=== PATIENT | female | born 1945 | race Caucasian/White ===

== ENCOUNTER 2021-02-02 16:50 | Inpatient (IN) | payer OTHER ==
[~2021-02-02] VITALS: Ht 165.1 cm; Wt 62.9 kg
--- NOTE | 2021-02-02 17:49 | NUR ---
REFERRED FROM URGENT CARE, STOMACH PAIN, RECTAL BLEEDING, TARRY STOOL. PT IN BED IN GOWN WITH [employer]ILY [employer], SPO2, BP Q 30 MIN, SIDE RIALS UP X2, CALL LIGHT IN REACH. FAMILY AT BEDSIDE. NAD
[2021-02-02] MEDS ORDERED: PANTOPRAZOLE 80 MG in SODIUM CHLORIDE 0.9% 50 ML IVPB ONE (18:30)
[2021-02-02] MEDS ORDERED: SODIUM CHLORIDE FLUSH 10ML SYR IVF ONE (18:30)
[2021-02-02] MEDS ORDERED: SODIUM CHLORIDE 0.9% 1,000ML IVBOLUS ONE (18:30)
[2021-02-02] MEDS ORDERED: LISI5TAB7 PO (18:31)
[2021-02-02 18:40] LABS: BASOPHILS % (AUTO) 1 % (0-1); EOSINOPHILS % (AUTO) 1 % (1-7); LYMPHOCYTES % (AUTO) 40 % (22-44); MEAN CORPUSCULAR HEMOGLOBIN 30.1 pg (27.0-34.8); MEAN CORPUSCULAR HGB CONC 32.9 g/dL (32.4-35.8); MEAN PLATELET VOLUME 10.4 fL (7.4-10.4); MONOCYTES % (AUTO) 7 % (2-9); NEUTROPHILS % (AUTO) 51 % (42-75); PLATELET COUNT 153 x10^3/uL (130-400); RED BLOOD COUNT 4.96 x10^6/uL (3.82-5.3); RED CELL DISTRIBUTION WIDTH 14.7 % (9.6-15.2)
[2021-02-02 18:42] LABS: MD NO
--- NOTE | 2021-02-02 18:46 | NUR ---
GAVE REPORT TO MICHELLE ARIAS
[2021-02-02 18:48] LABS: ALANINE AMINOTRANSFERASE 15 U/L (12-78); ALBUMIN 2.9 g/dL (3.4-5.0); ANION GAP 6 mmol/L (5-15); CALCIUM 8.9 mg/dL (8.5-10.1); CHLORIDE 107 mmol/L (98-107); CREATININE 0.95 mg/dL (0.55-1.02)
[2021-02-02 18:50] LABS: ALKALINE PHOSPHATASE 98 U/L (45-117); BILIRUBIN,TOTAL 0.6 mg/dL (0.2-1.0); TOTAL PROTEIN 6.4 g/dL (6.4-8.2)
--- NOTE | 2021-02-02 18:55 | NUR ---
REPORT FROM TRINY ARIAS. FLUIDS STARTED. PT RESTING IN NAD. FAMILY AT BEDSIDE. CALL LIGHT IN REACH
--- NOTE | 2021-02-02 20:04 | NUR ---
PROTONIX DONE. VSS. FLUIDS ALMOST DONE INFUSING. PT HAS NO NEEDS AT THIS TIME. CALL LIGHT IN REACH
[2021-02-02 21:12] LABS: INTERNATIONAL NORMALIZED RATIO 0.99 (0.93-1.1); PROTHROMBIN TIME 10.6 Seconds (9.6-11.5)
[2021-02-02] MEDS ORDERED: POTASSIUM CHLORIDE 20 MEQ TAB.ER.PRT PO ONE (21:30)
[2021-02-02] MEDS ORDERED: BISACODYL 10 MG SUPP PR PRN (21:30)
[2021-02-02] MEDS ORDERED: ONDANSETRON 2MG/ML, 2ML IVPush PRN (21:30)
[2021-02-02] MEDS ORDERED: PANTOPRAZOLE 80 MG in SODIUM CHLORIDE 0.9% 100 ML IV SCH (21:30)
[2021-02-02] MEDS ORDERED: hydrALAzine 20 MG/ML, 1ML IVPush PRN (21:30)
[2021-02-02 22:51] VITALS: BP 179/81
[2021-02-03] VITALS (8 sets, daily range): BP systolic 146–214; BP diastolic 69–102
[2021-02-03] MEDS ORDERED: hydrALAzine 20 MG/ML, 1ML IV ONE (00:30)
[2021-02-03] MEDS: ACETAMINOPHEN 325 MG TABLET PO PRN ×2 (01:25→20:51)
[2021-02-03] MEDS ORDERED: LORazepam 2 MG/ML, 1ML IVPush ONE ×2 (05:30→21:00)
[2021-02-03 05:33] LABS: ANION GAP 6 mmol/L (5-15); CALCIUM 8.7 mg/dL (8.5-10.1); CHLORIDE 113 mmol/L (98-107); CREATININE 0.85 mg/dL (0.55-1.02)
[2021-02-03 05:46] LABS: BASOPHILS % (AUTO) 0 % (0-1); EOSINOPHILS % (AUTO) 2 % (1-7); LYMPHOCYTES % (AUTO) 37 % (22-44); MD NO; MEAN CORPUSCULAR HEMOGLOBIN 30.3 pg (27.0-34.8); MEAN CORPUSCULAR HGB CONC 33.6 g/dL (32.4-35.8); MEAN PLATELET VOLUME 10.2 fL (7.4-10.4); MONOCYTES % (AUTO) 7 % (2-9); NEUTROPHILS % (AUTO) 54 % (42-75); PLATELET COUNT 134 x10^3/uL (130-400); RED BLOOD COUNT 4.63 x10^6/uL (3.82-5.3); RED CELL DISTRIBUTION WIDTH 14.7 % (9.6-15.2)
[2021-02-03] MEDS ORDERED: POTASSIUM CHLORIDE 40 MEQ in SODIUM CHLORIDE 0.9% 500 ML IV ONE (07:00)
[2021-02-03] MEDS ORDERED: BISACODYL 5 MG EC TABLET PO ONE ×2 (08:00→11:55)
[2021-02-03] MEDS: MOVIPREP POWDER 1 PREP KIT PO SCH ×2 (10:01→21:03)
[2021-02-03] MEDS: hydrALAzine 20 MG/ML, 1ML IVPush PRN ×2 (12:16→19:43)
[2021-02-03] MEDS ORDERED: LORazepam 0.5MG TABLET PO PRN (16:00)
[2021-02-03] MEDS: LACTATED RINGERS 1,000 ML IV SCH (16:15)
[2021-02-03] MEDS: LISINOPRIL 10 MG TABLET PO SCH (19:36)
[2021-02-03] MEDS ORDERED: LORazepam 2 MG/ML, 1ML IVPush PRN (21:00)
[2021-02-04 00:13] VITALS: BP 176/77
[2021-02-04] MEDS: hydrALAzine 20 MG/ML, 1ML IVPush PRN (00:22)
[2021-02-04] MEDS: LACTATED RINGERS 1,000 ML IV SCH (01:56)
[2021-02-04] MEDS ORDERED: MELATONIN 5 MG TABLET PO PRN (02:00)
[2021-02-04] MEDS: ACETAMINOPHEN 325 MG TABLET PO PRN (02:02)
[2021-02-04 02:05] VITALS: BP 170/86
[2021-02-04] MEDS ORDERED: OMEPRAZOLE 20 MG CAPSULE.DR PO SCH (06:00)
[2021-02-04 06:02] LABS: BASOPHILS % (AUTO) 0 % (0-1); EOSINOPHILS % (AUTO) 0 % (1-7); LYMPHOCYTES % (AUTO) 33 % (22-44); MEAN CORPUSCULAR HEMOGLOBIN 30.4 pg (27.0-34.8); MEAN CORPUSCULAR HGB CONC 33.6 g/dL (32.4-35.8); MEAN PLATELET VOLUME 10.5 fL (7.4-10.4); MONOCYTES % (AUTO) 7 % (2-9); NEUTROPHILS % (AUTO) 59 % (42-75); PLATELET COUNT 158 x10^3/uL (130-400); RED BLOOD COUNT 4.82 x10^6/uL (3.82-5.3); RED CELL DISTRIBUTION WIDTH 14.6 % (9.6-15.2)
[2021-02-04 06:05] LABS: MD NO
[2021-02-04 06:11] LABS: ANION GAP 7 mmol/L (5-15); CALCIUM 9.1 mg/dL (8.5-10.1); CHLORIDE 114 mmol/L (98-107); CREATININE 0.83 mg/dL (0.55-1.02)
[2021-02-04 06:18] LABS: INTERNATIONAL NORMALIZED RATIO 1.02 (0.93-1.1); PROTHROMBIN TIME 10.9 Seconds (9.6-11.5)
[2021-02-04] MEDS ORDERED: LABETALOL 5MG/ML, 20ML IVPush PRN (06:30)
[2021-02-04 06:45] VITALS: BP 164/100
[2021-02-04] MEDS ORDERED: POTASSIUM CHLORIDE 40 MEQ in SODIUM CHLORIDE 0.9% 500 ML IV ONE (07:00)
[2021-02-04] MEDS: MOVIPREP POWDER 1 PREP KIT PO SCH (09:00)
[2021-02-04] MEDS ORDERED: ONDANSETRON 2MG/ML, 2ML IVPush PRN (10:00)
[2021-02-04] MEDS ORDERED: FENTANYL PF 100 MCG/2ML IV PRN (10:00)
[2021-02-04] MEDS: LISINOPRIL 10 MG TABLET PO SCH (11:11)
[2021-02-04] MEDS ORDERED: LISI-167 PO (12:02)
[2021-02-04 13:22] VITALS: BP 176/75
== END 2021-02-04 13:33 | disposition home or self-care (01) | DRG 395 ==
LOC: ED 17:20 → EDIP 22:07 → 3N 22:14 → DCLOUNGE 02-04 13:26
PROVIDERS: ADMIT Internal Medicine; ATTEND Family Medicine
PROC: 0DBM8ZX Excision of Descending Colon, Via Natural or Artificial Opening Endoscopic, Diagnostic (ICD-10-PCS; 2021-02-04)
PROC: 0DBN8ZX Excision of Sigmoid Colon, Via Natural or Artificial Opening Endoscopic, Diagnostic (ICD-10-PCS; 2021-02-04)
PROC: 0DB68ZX Excision of Stomach, Via Natural or Artificial Opening Endoscopic, Diagnostic (ICD-10-PCS; principal; 2021-02-04 10:00)
DX: K55.9 Vascular disorder of intestine, unspecified (principal); E78.5 Hyperlipidemia, unspecified; E87.6 Hypokalemia; F41.0 Panic disorder [episodic paroxysmal anxiety]; I10 Essential (primary) hypertension; K59.09 Other constipation; I16.0 Hypertensive urgency; Z82.49 Family history of ischemic heart disease and other diseases of the circulatory system; Z87.19 Personal history of other diseases of the digestive system; Z98.51 Tubal ligation status; Z79.899 Other long term (current) drug therapy; Z79.891 Long term (current) use of opiate analgesic
CPT/HCPCS: 36415; 80048; 80053; 83605; 83690; 83735; 85025; 85610; 85730; 86850; 86900; 87635; 88305; 96365; G0378; J3480; C9113; J0360; J2060; J7030; J7040; J7120